=== PATIENT | male | born 1990 | race Caucasian/White ===

== ENCOUNTER 2025-09-30 19:56 | Emergency (ER) | payer BC, SELFPAY ==
--- OUTSIDE RECORDS SUMMARY | 2025-09-30 19:58 | XMS_ITS | Clinical Summary ---
Author Organization [facility] Address [address] [place] [address] Care Team Providers Care Android Ios Developer Name Role Phone John Carrillo M.D. Primary Care Provider [phone] Source Comments Patient records contain information from all sites at [facility]. For routine questions regarding patient records, call [phone] during business hours, M-F 8:00 AM - 5:00 PM Central Time. Record requests for emergency care only can be directed to [phone] at any time.[facility] Allergies Active AllergyReactionsCriticalityNoted DateCommentsPenicillinsGI intolerance 07/23/2015 Medications MedicationSigDispense QuantityRefillsLast FilledStart DateEnd DateStatus sildenafiL (VIAGRA) 50 mg tablet Take 1 tablet (50 mg total) by mouth daily as needed for erectile dysfunction. 18 tablet ctive Active Problems ProblemNoted DateDiagnosed DateDysfunction Jdsulokq01/23/2023 Immunizations ImmunizationAdministration DatesNext DueHepA / HepB01/13/2013,12/09/2012 Influenza, Injectable, Mdck, Preservative Free, Bmilpkghceqb04/12/2022Influenza, Seasonal, Effdsdejjw48/13/4984FBFZ-VAU-7 (COVID-19) - PFIZER BIVALENT TS(Discontinued)(12 YEARS OR OLDER)07/12/2022Tdap12/09/2012influenza vaccine quad (FLUZONE/FLUARIX) (6 months and older)(PF)07/21/2020 Family History Medical HistoryRelationNameCommentsNo Known ProblemsBrotherNo Known Problems Daughter 1No Known ProblemsDaughter 2HypertensionFatherNo Known ProblemsMother RelationNameStatusCommentsBrotherAliveDaughter 1AliveDaughter 2AliveFatherAlive MotherAlive Social History Tobacco UseTypesPacks/DayYears UsedDateSmoking Tobacco: NeverSmokeless Tobacco: Never Tobacco Cessation:Counseling Given: Yes Alcohol UseStandard Drinks/WeekCommentsYes0 (1 standard drink = 0.6 oz pure alcohol)SocialHumiliation, Afraid, Rape, and Kick questionnaireAnswerDate RecordedWithin the last year, have you been afraid of your partner or ex-partner?No10/23/2022Within the last year, have you been humiliated or emotionally abused in other ways by your partner or ex-partner?No10/23/2022 Within the last year, have you been kicked, hit, slapped, or otherwise physically hurt by your partner or ex-partner?No10/23/2022Within the last year, have you been raped or forced to have any kind of sexual activity by your part ner or ex-partner?No10/23/2022Hunger Vital SignAnswerDate RecordedWithin the past 12 months, you worried that your food would run out before you got the money to buymore.Never true10/23/2022Within the past 12 months, the food you bought just didn't last and you didn't have money to get more.Never true 10/23/2022RAPARE - TransportationAnswerDate RecordedIn the past 12 months, has lack of transportation kept you from medical appointments or from getting medications?No10/23/2022In the past 12 months, has lack of transportation kept you from meetings, work, or from getting things needed for daily living?No 10/23/2022Housing Stability Vital SignAnswerDate RecordedIn the last 12 months, was there a time when you were not able to pay the mortgage or rent on time?No 10/23/2022In the last 12 months, how many places have you lived?In the last 12 months, was there a time when you did not have a steady place to sleep or slept in ashelter (including now)?No10/23/2022EducationAnswerDate RecordedWhat is the highest level of school you have completed or the highest degree you have received?Bachelor's degree (e.g., BA, AB, BS)10/23/2022Sex and Gender InformationValueDate RecordedSex Assigned at PyzxxOllu58/23/2023 8:28 AM CSTLegal PdcXicd3911/03/2016 4:48 PM CSTGender JykpvrteScgd91/23/2023 8:28 AM OUTDOOR ADVENTURE INSTRUCTOR Sexual NhppbfzhvpgIhttmeqp09/23/2023 8:28 AM OUTDOOR ADVENTURE INSTRUCTOR Last Filed Vital Signs Vital SignReadingTime TakenCommentsBlood Qnxyzwqv573/77010/23/2022 8:21 AM OUTDOOR ADVENTURE INSTRUCTOR Nhwun262010/23/2022 8:21 AM CXELlclhikvmji87.4 ??C (97.6 ??F)10/23/2022 8:21 AM CSTRespiratory Mpof271410/23/2022 8:21 AM CSTOxygen Ntymfibnwi783%10/23/2022 8:21 AM CSTInhaled Oxygen Concentration--Ddoxkz915 kg (228 lb 11.2 oz)10/23/2022 8:21 AM KUPJzouxi080.5 cm (6' 3)10/23/2022 8:21 AM CSTBody Mass Index28.59010/23/2022 8:21 AM OUTDOOR ADVENTURE INSTRUCTOR Plan of Treatment Health MaintenanceDue DateLast DoneCommentsLipid (Cholesterol) Screening 1989Hepatitis A Vaccines (3 of 3 - Hep A Twinrix risk 3-dose series) , 12/09/2012Hepatitis B Vaccines (3 of 3 - Hep B Twinrix 3- dose series), 12/09/2012HPV Vaccines (1 - 3-dose SCDM series)2016Depression Screening (Annual PHQ-2)5COVID-19 Vaccine ( season)510/08/2022, 08/21/2021, 01/19/2021, Additional history existsInfluenza Vaccine (#1)510/08/2022, 07/13/2021, 07/21/2020 DTaP,Tdap,and Td Vaccines (3 - Td or Tdap)305/06/2023, 12/09/2012HIV GplxkrxprAuwnvzrka85/14/2018Hepatitis B MloadsxsuSneannyqdoje70/14/2018IPV VaccinesAged OutNo longer eligible based on patient's age to complete this topic Pneumococcal vaccine (0-49 years)Aged OutNo longer eligible based on patient's age to complete this topic Procedures Procedure NamePriorityDate/TimeAssociated DiagnosisCommentsHIV-1 P24 AG, HIV-1/2 AB SCRN, JHuwhmjf64/14/2018 2:38 PM CDT Screening Examination For Viral Disease HEPATITIS B SURFACE RBINWRDIksfgin41/14/2018 2:38 PM CDT Screening Examination For Viral Disease from Last 3 Months or Most Recently Relevant to Health Maintenance Results * HIV-1 p24 Ag, HIV-1/2 Ab Scrn, P (06/14/2018 2:38 PM CDT)ComponentValueRef RangeTest MethodAnalysis TimePerformed AtPathologist SignatureHIV Ag/Ab Screen, NKyusfiieVkvlgahi04/16/2018 12:[address] [facility]: Negative result does not rule out HIV infection. If exposure to HIV infection occurred <14 days ago, contact the laboratory to request addition of HIV-1 RNA detection / quantification test. HIV-1 p24 Ag Screen, OIuulcrdrSdcswehg87/16/2018 12:[address] [facility]: Negative result does not rule out HIV infection. If exposure to HIV infection occurred <14 days ago, contact the laboratory to request addition of HIV-1 RNA detection / quantification test. HIV-1 Ab Screen, YYwvkjihxNqldyhjw04/16/2018 12:[address] [facility]: Negative result does not rule out HIV infection. If exposure to HIV infection occurred <14 days ago, contact the laboratory to request addition of HIV-1 RNA detection / quantification test. HIV-2 Ab Screen, HIgpvpgkhElbkapef58/ 12:38 PM [facility]: Negative result does not rule out HIV infection. If exposure to HIV infection occurred <14 days ago, contact the laboratory to request addition of HIV-1 RNA detection / quantification test. Specimen (Source)Anatomical Location / LateralityCollection Method / Volume Collection TimeReceived TimeBlood (Blood, Venous)06/14/2018 2:38 PM CDT 06/16/2018 9:58 AM CDT Narrative Authorizing ProviderResult TypeResult StatusYahir Crockett M.D.LAB MICROBIOLOGY - BLOOD ORDERABLESFinal ResultPerforming OrganizationAddress [facility]/ZIP CodePhone Number [facility] [address] [place] [address], [facility] * Hepatitis B Surface Antigen (06/14/2018 2:38 PM CDT)ComponentValueRef Range Test MethodAnalysis TimePerformed AtPathologist SignatureHBs Antigen, S DblcygbvwusZgthdukncym23/14/2018 11:[address] [facility]Comment: Biotin has been identified by the bonding equipment operator as a potential interfering substance. ??Higher concentrations of biotin may be found in multivitamins, hair/nail supplements, and workout supplements. ??If the result does not match clinical observations, repeat testing after patient refrains from the use of supplements for at least 12 hours. Specimen (Source)Anatomical Location / LateralityCollection Method / Volume Collection TimeReceived TimeBlood (Blood, Venous)06/14/2018 2:38 PM CDT 06/14/2018 11:01 PM CDT Narrative Authorizing ProviderResult TypeResult Sacha Crockett M.D.LAB MICROBIOLOGY - BLOOD ORDERABLESFinal ResultPerforming OrganizationAddress [facility]/State/ZIP CodePhone Number [facility] [address] [place] [address], [facility] from Last 3 Months or Most Recently Relevant to Health Maintenance Insurance Care Teams Team MemberRelationshipSpecialtyStart DateEnd Date John Carrillo M.D. [address] [place] [phone] PCP - GeneralFaidly Medicine11/05/17
--- OUTSIDE RECORDS SUMMARY | 2025-09-30 19:58 | XMS_ITS | Clinical Summary ---
Author Organization [facility] Address [address], [place] [address] Care Team Providers Care Gang Drill Press Operator Name Role Phone Unavailable Primary Care Provider Unavailabl e Source Comments You are receiving this document as you are listed as the primary care provider,follow-up provider, or the patient has been referred to you for consultation.This is in compliance with the Medicare andGre[facility] Hospitalcaid EHR Incentive Program,which states Providers who transition their patient to another setting of careor provider of care or refers their patient to another provider of care shouldprovide summary care record for each transition of care or referral. [facility] Allergies No known active allergies Medications No known medications Social History Tobacco UseTypesPacks/DayYears UsedDateSmoking Tobacco: Never Tobacco Cessation:Counseling Given: Not Answered Sex and Gender InformationValueDate RecordedSex Assigned at BirthNot on file Legal WhxZmgd2102/07/2023 8:06 AM CDTGender IdentityNot on fileSexual Orientation Not on file Plan of Treatment Health MaintenanceDue DateLast DoneCommentsHep C Screening (Preventive Services) 1989HIV Screening (Preventive Services)2005Adult Preventive Visit 2007HepB Vaccine (1)04/29/20080516Uvewvadpnam61/30/2024COVID-19 Vaccine ( season)/08/2022, 08/21/2021, 01/19/2021, Additional history existsInfluenza Vaccine (#1)/08/2022, 07/13/2021, 07/21/2020 DTaP/Tdap/Td Vaccine (3 - Tdap)/06/2023, 12/09/2012Zoster/Shingles Vaccine (1 of 2)2039HepA VaccineAged Out01/13/2013, 12/09/2012No longer eligible based on patient's age to complete this topicHPV Vaccine (No Doses Required)CompletedHib VaccineAged OutNo longer eligible based on patient's age to complete this topicIPV (Polio) VaccineAged OutNo longer eligible based on patient's age to complete this topicMCV4 VaccineAged OutNo longer eligible based on patient's age to complete this topicMeningococcal B VaccineAged OutNo longer eligible based on patient's age to complete this topicPneumococcal VaccineAged OutNo longer eligible based on patient's age to complete this topic Insurance
--- OUTSIDE RECORDS SUMMARY | 2025-09-30 19:58 | XMS_ITS | Clinical Summary ---
Author Organization [facility] Address [address] [place] [address] Care Team Providers Care Felling Machine Operator Name Role Phone Daniel Clicker Primary Care Provider [phone] Allergies Active AllergyReactionsCriticalityNoted DateCommentsPenicillinsVomiting 07/23/2015 Medications MedicationSigDispense QuantityRefillsLast FilledStart DateEnd DateStatus erythromycin ophthalmic ointment 0.5% Place 1 Strip into both eyes 3 times daily.08/28/2014ctive ondansetron (ZOFRAN ODT) 4 mg disintegrating tablet Indications:DehydrationPlace 1 tablet on the tongue every 8 hours if needed for Nausea/Vomiting. 5 tablet ctive HYDROcodone-acetaminophen ([place]) 5-325 mg per tablet Indications:Laceration of left middle finger without foreign body with damage to nail, initial encounterTake 1 Tablet by mouth every 4 hours if needed for Pain. Max acetaminophen dose: 4000 mg in 24 hrs. 12 Tablet 02/06/2023ctive Immunizations ImmunizationAdministration DatesNext SaqTfku3602/06/2023 Social History Tobacco UseTypesPacks/DayYears UsedDateSmoking Tobacco: NeverAlcohol UseStandard Drinks/WeekCommentsYes0 (1 standard drink = 0.6 oz pure alcohol)Sex and Gender InformationValueDate RecordedSex Assigned at BirthNot on fileLegal SexMale 08/28/2014 10:36 AM CSTGender IdentityNot on fileSexual OrientationNot on file Last Filed Vital Signs Vital SignReadingTime TakenCommentsBlood Ajcgmqxb330/7005/06/2023 5:30 PM CDT Yyhne530402/06/2023 5:30 PM WHEBjgbiulbsnj42.6 ??C (97.8 ??F)02/06/2023 4:06 PM CDTRespiratory Azbr078302/06/2023 5:30 PM CDTOxygen Jthexlyhdp72%02/06/2023 5:30 PM CDTInhaled Oxygen Concentration--Hyqjgl78.8 kg (220 lb)02/06/2023 4:06 PM CDT Byflor014.5 cm (6' 3)02/06/2023 4:06 PM CDTBody Mass Index27.505 4:06 PM CDT Plan of Treatment Health MaintenanceDue DateLast DoneCommentsDepression screening for age 12+ 2001HIV for age 15-65004/29/2004BMI (ht and wt on same day) for age 18+ 2007Hepatitis C screening for age 18-7904/29/2007Hepatitis B series for 19+ (1 of 3 - 19+ 3-dose series)2008HPV series for age 9-45 (1 - 3-dose SCDM series)2016Lipids for age 35-4COVID-19 vaccine series ( - 2024- season)2025Influenza Vaccine (#1)2025Tetanus booster /neumococcal series for age 6-49Aged OutNo longer eligible based on patient's age to complete this topic Insurance * Guarantor: AUBREY MISHRAAccount TypeRelation to PatientDate of PhoneBilling AddressOcc Health/CorpEmployer ATTN ACCTS PAYABLE [address] [place] [address] Care Teams Team MemberRelationshipSpecialtyStart DateEnd Date [facility] [address] [facility] [place] [address] [facility]02/06/23
[2025-09-30 20:10] VITALS: BP 124/65; PULSE 97; RESP 19; TEMP 37.1; O2SAT 95; BMI 27.5
--- NOTE | 2025-09-30 20:21 | ED_ITS ---
HPI - General Adult General Chief complaint: Fever Stated complaint: 103 fever Time Seen by Provider: 09/30/25 19:59 History of Present Illness HPI narrative: This 35-year-old male comes in with his reporting fever, cough, and body aches and pains that started about 24 hours ago. He states that someone in the family had influenza a and he is wondering if he now has the same thing. He did report fever of 103.5 but has taken Tylenol and arrives here now with normal temperature. Other vital signs are also normal on arrival. Related Data Home Medications ?Medication ?Instructions ?Recorded ?Confirmed No Known Home Medications 09/30/2509/02 Allergies Allergy/AdvReac Type Severity Reaction Status Date / Time No Known Drug Allergies Allergy Verified 09/30/25 20:14 Review of Systems Status of ROS: Reports: 10 or more systems reviewed and unremarkable except as noted in History and below Narrative: Constitutional: No weight gain or loss. Eyes: No discharge. No vision changes. HENT: No sore throat, no ear pain. Cardiovascular: No chest pain, no palpitations. Respiratory: No shortness of breath, no wheezes. He reports a cough. Gastrointestinal: No abdominal pain, no vomiting, no diarrhea. Genitourinary: No dysuria, no hematuria. Musculoskeletal: Normal range of motion. Skin: No rashes, no pruritis. Neurological: No dizziness, weakness, sensory change, speech change. Endo/Heme/Allergies: No bruising or bleeding. No polydipsia. Pysch: no suicidality, no anxiety, no insomnia. All other systems reviewed and are negative. Exam Narrative: Exam Narrative: Constitutional: Well-developed, well-nourished, no acute distress. HEENT: Normocephalic, atraumatic. Neck: Normal range of motion. Nontender. Supple. Heart: Regular. No murmurs. Normal rate. Intact distal pulses. Lungs: Clear to auscultation. No chest discomfort. No wheezes, rhonchi, or rales. Abdomen: Normal bowel sounds. Nontender. No rebound tenderness. Genitalia: Deferred. Back: No midline tenderness. Normal range of motion. Extremities: Normal range of motion. No injury. Skin: Intact. No rash. Warm. No erythema or pallor. Neurologic: No altered sensation. No weakness. Alert and oriented. Psychiatric: No suicidality. No anxiety or depression. No insomnia. Nursing notes and vitals signs are reviewed. Const: Vital Signs, click to edit/add: Vital Signs - 24 hr 09/30/25 20:10 Temperature 98.8 F Pulse Rate [Right Pulse Oximeter] 97 Respiratory Rate 19 Blood Pressure [Le ft Upper Arm] 124/65 Pulse Oximetry 95 Oxygen Delivery Me thod Room Air Course Vital Signs Vital signs: Initial Vital Signs Temperature 98.8 F 09/30/25 20:10 Temperature Source Temporal Artery Scan 09/30/25 20:10 Pulse Rate 97 09/30/25 20:10 Respiratory Rate 19 09/30/25 20:10 Blood Pressure 124/65 09/30/25 20:10 Blood Pressure Mean 84 09/30/25 20:10 Blood Pressure Position Sitting 09/30/25 20:10 Pulse Oximetry 95 09/30/25 20:10 Oxygen Delivery Method Room Air 09/30/25 20:10 Vital Signs Temperature 98.8 F 09/30/25 20:10 Pulse Rate 97 09/30/25 20:10 Respiratory Rate 19 09/30/25 20:10 Blood Pressure 124/65 09/30/25 20:10 Pulse Oximetry 95 09/30/25 20:10 Oxygen Delivery Method Room Air 09/30/25 20:10 Temperature 98.8 F 09/30/25 20:10 Pulse Rate 97 09/30/25 20:10 Respiratory Rate 19 09/30/25 20:10 Blood Pressure 124/65 09/30/25 20:10 Pulse Oximetry 95 09/30/25 20:10 Oxygen Delivery Method Room Air 09/30/25 20:10 Medications Administered Medications: Generic Name Dose Route Start Last Admin Trade Name Freq PRN Reason Stop Dose Admin Dexamethasone 10 mg 09/30/25 20:54 09/30/25 21:02 Dexamethasone 10 Mg/Ml Pf PO 09/30/25 20:55 10 mg ONCE ONE Administration Medical Decision Making MDM Narrative Medical decision making narrative: This patient comes in with cough, nasal congestion, body aches and pains, and fever. His symptoms were rather suspicious for influenza infection but nasal pharyngeal swab returns negative for all those viruses tested. The patient has reassuring exam and vital signs currently. He did have fever measured at 1 103.5? F. he is likely fighting some kind of infection and it is most likely a virus but given the negative testing I did prescribe a Z-Xu. He also received an oral dose of dexamethasone 10 mg. Lab Data Labs: Lab Results 09/30/25 Range/Units 20:17 SARS-CoV-2 (PCR) Negative SARS-CoV-2 (Negative) Influenza Type A (PCR) Negative PCR FLU A (Negative) Influenza Type B (PCR) Negative PCR FLU B (Negative) RSV (PCR) Negative PCR RSV (Negative) Discharge Plan Discharge Clinical Impression: Acute upper respiratory infection Patient Disposition: Home, Self-Care Condition: Stable Additional Instructions: take medication as prescribed and use yowe-imn-kbtgufj medicines also as needed and directed. Follow up with MD return if worsening. Prescriptions: No Action No Known Home Medications Follow Up/Referrals: Provider,Not a Local [Primary Care Provider, Family Practice] Stand Alone Forms: [address] Info Instructions
[2025-09-30 21:02] LABS: PCR FLU A Negative PCR FLU A (Negative); PCR FLU B Negative PCR FLU B (Negative); PCR RSV Negative PCR RSV (Negative); SARS PCR* Negative SARS-CoV-2 (Negative)
[2025-09-30] MEDS: DEXAMETHASONE 10 MG/ML PF PO (21:02)
== END 2025-09-30 21:31 | disposition home or self-care (01) ==
PROVIDERS: Emergency Provider Emergency Medicine Emergency Medical Services
DX: J06.9 Acute upper respiratory infection, unspecified (principal); R50.9 Fever, unspecified
CPT/HCPCS: 87631; 99283; 99284; J1100